=== PATIENT | male | born 1965 | race Caucasian/White ===

== ENCOUNTER 2016-10-07 07:23 | Observation (INO) | payer OTHER ==
[2016-10-02 09:13] VITALS: BMI 39.0
--- NOTE | 2016-10-02 09:55 | PAT Medication Instructions ---
Service Date October 02, 2016. Current Home Medication List Alprazolam (Xanax), 0.5 MG PO BID PRN for RN Aspirin (Aspirin Ec), 81 MG PO QAM Atorvastatin (Lipitor), 80 MG PO QAM Benzoyl Peroxide (Benzoyl Peroxide), 1 DOSE TOP PRN Bupropion (Wellbutrin), 100 MG PO TID Citalopram Hydrobromide (Citalopram Hydrobromide), 1 TAB PO QAM Furosemide (Lasix), 80 MG PO QPM Gabapentin (Neurontin), 800 MG PO TID Insulin Glargine (Lantus), 5 UNITS INJ QAM Insulin Human Lispro (Humalog), 20 UNITS INJ TIDM Losartan Potassium (Cozaar), 100 MG PO QAM Metformin Hcl (Glucophage), 1,000 MG PO BID Omeprazole (Prilosec), 20 MG PO QAM Pioglitazone (Actos), 1 TAB PO QAM Potassium Ext Rel (Klor-Con), 20 MEQ PO QAM Medication Instructions For Your Scheduled Surgery Aspirin (Aspirin Ec), 81 MG PO QAM (patient has been off of medication for four weeks) - Hold the following medications 48 hours or 2 days prior to surgery: Metformin Hcl (Glucophage), 1,000 MG PO BID - Hold the following medications 24 hours prior to surgery: Benzoyl Peroxide (Benzoyl Peroxide), 1 DOSE TOP PRN - Hold the following medications the morning of surgery: Pioglitazone (Actos), 1 TAB PO QAM Potassium Ext Rel (Klor-Con), 20 MEQ PO QAM Losartan Potassium (Cozaar), 100 MG PO QAM Insulin Human Lispro (Humalog), 20 UNITS INJ TIDM - Take the following medications the morning of surgery with a sip of water: Omeprazole (Prilosec), 20 MG PO QAM Gabapentin (Neurontin), 800 MG PO TID Citalopram Hydrobromide (Citalopram Hydrobromide), 1 TAB PO QAM Bupropion (Wellbutrin), 100 MG PO TID Atorvastatin (Lipitor), 80 MG PO QAM Alprazolam (Xanax), 0.5 MG PO BID PRN for RN - Take the following medications as scheduled the night before surgery: Gabapentin (Neurontin), 800 MG PO TID Furosemide (Lasix), 80 MG PO QPM Bupropion (Wellbutrin), 100 MG PO TID Alprazolam (Xanax), 0.5 MG PO BID PRN for RN - For Insulin Dependent Diabetic patients: Test blood sugar A.M. of surgery. - If blood sugar is greater 150, take half of your Lantus dose ( 26 units) - If blood sugar is less than 150, do not take any: Lantus If you have any questions please call us at [phone] or [phone] ( Amy) or [phone]
[2016-10-02 10:37] LABS: BASO % 0.5 %; BASO ABS # 0.03 K/uL (0-0.2); COMPLETE YES; EOS % 3.9 %; HEMATOCRIT 36.7 % (42-52); IG% 0.2 %; LYMPH % 43.3 %; LYMPH ABS # 2.68 K/uL (1.2-3.4); MEAN CELL VOLUME 93.6 fL (80-100); MEAN CORPUSCULAR HEMOGLOBIN 30.4 pg (25-34); MEAN CORPUSCULAR HGB CONC 32.4 g/dl (32-36); MEAN PLATELET VOLUME 9.2 fL (7.4-10.4); MONO % 6.9 %; NEUT % 45.2 %; PLATELET COUNT 265 K/uL (130-400); RED BLOOD COUNT 3.92 M/uL (4.7-6.1); WHITE BLOOD COUNT 6.19 K/uL (4.8-10.8)
[2016-10-02 10:59] LABS: BUN/CREATININE RATIO 11.1 (10-20); CALCIUM 8.9 mg/dl (8.5-10.1); CREATININE 1.5 mg/dl (0.60-1.40); POTASSIUM 3.5 mmol/L (3.5-5.1)
[2016-10-02 11:16] LABS: BETA-HYDROXYBUTYRATE 0.8 mg/dL (0.2-2.81)
[~2016-10-07] VITALS: Ht 185.4 cm; Wt 134.2 kg
[2016-10-07] VITALS (9 sets, daily range): BP systolic 129–163; BP diastolic 80–94; PULSE 69–92; TEMP 36.6–36.9; O2SAT 92–98; BMI 39.0
[~2016-10-07 07:23] MED LIST: ACT30 PO; ALPR-411 PO; ASPI81TA28 PO; ATOR-26 PO; BENZ1GEL9 TOP; BUPR-83 PO; CITA20TA4 PO; FURO80TA63 PO; GABA800T PO; INSDGI INJ; INSPMPHMLG INJ; LACTATED RINGER'S 1000ML 1,000 ML IV SCH; LOSA1TAB38 PO; METF-384 PO; POTA20TA16 PO; PRLSR20 PO
[2016-10-07] MEDS ORDERED: ROCURONIUM BROMIDE 10 MG/ML 5 ML VIAL ONE (08:05)
[2016-10-07] MEDS ORDERED: LIDOCAINE HCL 2% 2 ML VIAL (20MG/ML) ONE (08:05)
[2016-10-07] MEDS ORDERED: FENTANYL CITRATE INJ 50 MCG/1 ML 2 ML VIAL ONE (08:05)
[2016-10-07] MEDS ORDERED: PROPOFOL IV EMULSION 10 MG/ML 20 ML VIAL IV ONE (08:05)
[2016-10-07] MEDS ORDERED: MIDAZOLAM HCL 1 MG/ML 2ML VIAL ONE (08:05)
[2016-10-07] MEDS ORDERED: ONDANSETRON INJ 2 MG/ML 2 ML VIAL ONE (08:05)
[2016-10-07] MEDS ORDERED: ONDANSETRON INJ 2 MG/ML 2 ML VIAL IV PRN ×3 (08:45→12:00)
[2016-10-07] MEDS ORDERED: FENTANYL CITRATE INJ 50 MCG/1 ML 2 ML VIAL IV PRN ×2 (08:45→10:00)
[2016-10-07] MEDS ORDERED: EpHEDrine SULFATE INJ 50 MG/ML AMP IV PRN ×2 (08:45→10:00)
[2016-10-07] MEDS ORDERED: ATROPINE SULFATE 0.1 MG/ML 5ML SYR IV PRN ×2 (08:45→10:00)
[2016-10-07] MEDS ORDERED: PROMETHAZINE HCL INJ 6.25 MG in SODIUM CHLORIDE 0.9% 50ML 50 ML IV PRN ×2 (08:45→10:00)
[2016-10-07] MEDS ORDERED: LANTUS PER UNIT CHARGE SC ONE (09:00)
--- NOTE | 2016-10-07 09:35 | History and Physical ---
History & Physical Date October 07, 2016. History of Present Illness The patient is a 51 year old male with complaints of right sided cervical lipoma. Patient desires removal. Additional History Hepatic Disease: No Endocrine Disorder: Yes (diabetes) Kidney Disease: No Hypertension: No Heart Disease: No Bleeding Tendencies: No Infectious Diseases: No Allergies Coded Allergies: Trazodone (Unverified Allergy, Unknown, UNKNOWN, 10/07/16) Home Medications Scheduled Aspirin (Aspirin Ec), 81 MG PO QAM Atorvastatin (Lipitor), 80 MG PO QAM Benzoyl Peroxide (Benzoyl Peroxide), 1 DOSE TOP PRN Bupropion (Wellbutrin), 100 MG PO TID Citalopram Hydrobromide (Citalopram Hydrobromide), 1 TAB PO QAM Furosemide (Lasix), 80 MG PO QPM Gabapentin (Neurontin), 800 MG PO TID Insulin Glargine (Lantus), 55 UNITS INJ QAM Insulin Human Lispro (Humalog), 20 UNITS INJ TIDM Losartan Potassium (Cozaar), 100 MG PO QAM Metformin Hcl (Glucophage), 1,000 MG PO BID Omeprazole (Prilosec), 20 MG PO QAM Pioglitazone (Actos), 1 TAB PO QAM Potassium Ext Rel (Klor-Con), 20 MEQ PO QAM Scheduled PRN Alprazolam (Xanax), 0.5 MG PO BID PRN for RN Physical Examination Skin: warm/dry, no rash Eyes: normal inspection, EOMI, sclerae normal ENT: normal ENT inspection, pharynx normal Head: normocephalic, atraumatic Neck: + pertinent finding (right neck lipoma) Respiratory/Chest: lungs clear, normal breath sounds, no respiratory distress Cardiovascular: regular rate, rhythm, no edema, no murmur Diagnosis Right cervical lipoma Plan of Treatment proceed with excision of lipoma, possible submandibular gland excision ancef scds
[2016-10-07] MEDS ORDERED: CEFAZOLIN IV 3,000 MG/65 ML D5W IV ONE (09:49)
[2016-10-07] MEDS ORDERED: LIDOCAINE/EPINEPHRINE 1% 20 ML VIAL ONE (09:50)
[2016-10-07] MEDS ORDERED: EpINEphrine INJ 1MG/ML AMP 1 MG/ML AMP ONE (09:51)
[2016-10-07] MEDS ORDERED: BACITRACIN OINT 15 GM TUBE ONE (09:52)
[2016-10-07] MEDS ORDERED: GLYCOPYRROLATE INJ 0.2 MG/ML VIAL ONE (10:52)
[2016-10-07] MEDS ORDERED: SUCCINYLCHOLINE CHLORIDE 20 MG/ML 10 ML VIAL IV ONE (10:52)
[2016-10-07] MEDS ORDERED: NEOSTIGMINE METHYLSULFATE 5 MG/5 ML SYR ONE (10:52)
[2016-10-07] MEDS: SODIUM CHLORIDE 0.9% 1000ML 1,000 ML IV SCH ×2 (11:45→14:42)
--- NOTE | 2016-10-07 11:54 | [facility] Post Operative Brief Note ---
Immediate Operative Summary Operative Date October 07, 2016. Pre-Operative Diagnosis Right cervical lipoma Post-Operative Diagnosis Right cervical lipoma Procedure(s) Performed Excision of Right Cervical Lipoma Surgeon Dr. Edwardo Coleman Drapery Examiner Surgeon(s) Elenita Ji PA-C Estimated Blood Loss 10ml Findings Large right cervical lipoma Specimens A. Right Cervical Lipoma Drains 10 flat TRISH drain to bulb suction Anesthesia GETA Complication(s) None Disposition Recovery Room / PACU
[2016-10-07] MEDS ORDERED: OXYCODONE/ACETAMINOPHEN 5-325 TAB PO PRN ×2 (12:00)
[2016-10-07] MEDS ORDERED: ALPRAZOLAM 0.5 MG TAB PO PRN (12:00)
[2016-10-07] MEDS ORDERED: MoRPHine SULFATE 2 MG/ML CARP IV PRN (12:00)
[2016-10-07] MEDS ORDERED: PHARMACY GLYCEMIC MGMT CONSULT PRN (12:02)
[2016-10-07] MEDS ORDERED: CEPH500C2 PO (12:05)
[2016-10-07] MEDS ORDERED: OXYC-57 PO (12:05)
--- NOTE | 2016-10-07 12:10 | Discharge Instructions ---
Discharge Instructions Date of Service October 07, 2016. Admission Reason for Admission: Neck Mass, Lipoma Of Neck Discharge Discharge Diagnosis / Problem: lipoma of the neck Discharge Goals Goal(s): Improve function, Diagnostic testing Activity Recommendations Activity Limitations: as noted below Lifting Limitations: until after follow-up appointment Exercise/Sports Limitations: until after follow-up appointment May Resume Sexual Activity: after follow-up appointment Shower/Bathe: keep incision dry No strenuous activity for 2 weeks No heavy lifting for 2 weeks Keep incision dry (if you want to shower, you can place a washcloth over the incision and wrap the neck in saran wrap). Instructions / Follow-Up Instructions / Follow-Up No strenuous activity for 2 weeks Keep incision dry. If you want to shower, place a wash cloth over the incision and wrap the neck in saran wrap Call for any spreading redness or swelling of the incision Apply bacitracin ointment ( tube you got at the hospital) to the incision line three times daily Take antibiotic (Keflex) as directed No NSAIDs for 2 weeks Ok to restart your baby aspirin in one week Take pain medication supplied or regular tylenol. Do not take both at the same time as the pain medication you were provided at the hospital has tylenol in it. Current Hospital Diet Patient's current hospital diet: Discharge Diet Recommended Diet: Regular Diet Procedures Procedures Performed: Excision of Right Cervical Lipoma Pending Studies Studies pending at discharge: no Medical Emergencies . Who to Call and When: Medical Emergencies: If at any time you feel your situation is an emergency, please call 911 immediately. . Non-Emergent Contact Non-Emergency issues call your: Specialist Contact Number: [phone] Call Non-Emergent contact if: temperature is above 101.5 . . "Provider Documentation" section prepared by Edwardo Coleman. . VTE Core Measure Inpt VTE Proph given/why not?: Treatment not indicated [place] Drug Monitoring Program Search Results: patient reviewed within database, no issues identified
[2016-10-07] MEDS ORDERED: IV FLUIDS COMPLETED PRN (12:45)
--- NOTE | 2016-10-07 12:53 | Anesthesiology Progress Note ---
Anesthesia Post Op Note Date & Time October 07, 2016 at 12:53 Vital Signs Pain Intensity: 0 Vital Signs Past 12 Hours Date Time Temp Pulse Resp B/P Pulse Ox O2 Delivery O2 Flow Rate FiO2 10/07/16 12:45 87 16 158/95 95 Nasal Cannula 4 10/07/16 12:35 89 16 160/96 95 Nasal Cannula 4 10/07/16 12:25 89 16 163/94 93 Nasal Cannula 4 10/07/16 12:15 36.2 92 16 167/103 95 Nasal Cannula 3 10/07/16 12:05 92 15 168/100 99 Mask 10 10/07/16 11:55 97 22 165/96 98 Mask 10 10/07/16 11:46 36.0 96 13 153/93 96 Mask 10 10/07/16 07:50 36.9 69 18 149/91 97 Room Air Notes Mental Status: alert / awake / arousable, participated in evaluation Pt Amnestic to Procedure: Yes Nausea / Vomiting: adequately controlled Pain: adequately controlled Airway Patency, RR, SpO2: stable & adequate BP & HR: stable & adequate Hydration State: stable & adequate Anesthetic Complications: no major complications apparent
--- NOTE | 2016-10-07 14:36 | Pharmacy Progress Note ---
Glycemic Control Intl Consult Date of Service October 07, 2016. Scope Glycemic Pharmacist consulted by Dr Coleman (Dr Muhammad aware) on 10/07/16 for glycemic control and to write orders per [facility] inpatient glycemic control protocol Objective Weight (Kilograms): 134.200 Accuchecks BSG (last 24hrs): Test 10/07/16 07:48 10/07/16 12:06 Bedside Glucose 206 mg/dl (70-99) 199 mg/dl (70-99) Laboratory Data (last 24hrs) Test 10/07/16 14:17 HbA1c Test 10/07/16 14:17 Recent Pertinent Medications Outpatient Anti-diabetic Regimen: * Lantus 55 units qAM plus Humalog 20 units with meals; metformin 1000 mg PO BID ; Actos 30 units qAM * A1c = 10.6 % 08/09/16 Risk Factors for Insulin Resistance: * Recent Surgery: removal of lipoma * Diet: type 2 diabetic diet Assessment & Plan ASSESSMENT: * ADA & AACE recommend a goal blood sugar range 140-180 mg/dl for the majority of critically ill & non-critically ill patients. However, more stringent targets may be selected in individual cases. Will utilize more stringent goal of 110-140mg/dl based on patient age & comorbidities. Additionally, tighter glycemic control is warranted to facilitate wound/infection healing. * Mr Gordillo is a 51 y/o male admitted 10/07/16 as observation after the excision of a neck lipoma. He is a poorly controlled diabetic with an A1C of 10.6% in July. He received Lantus 50 units SQ x 1 this morning prior to surgery. His blood sugar this morning was 206 mg/dL then 199 mg/dL after surgery. * Will continue Lantus 50 units in the morning. A strict correctional insulin will be started based upon patient's outpatient dose of 115 units/day with a stress of 2. Overnight accuchecks were added to ensure adequate post-op glycemic management. PLAN FOR INPATIENT GLYCEMIC CONTROL: * Holding outpatient oral diabetes medications * Basal insulin with LANTUS 50 units SQ qAM * Correctional Insulin with NOVOLOG per scale ACHS o * Goal Range: Low 110 mg/dL - High 140 mg/dL * Correction Factor: 10 mg/dL/unit * Nutritional / Prandial insulin per carb ratio of 1 unit per 4 grams CHO consumed * Please note that the plan above was derived based on current level of insulin resistance and hospital stress. These recommendations are appropriate for inpatient admission only. Plan of care upon discharge will need to be reassessed to avoid potential outpatient hypo/hyperglycemia. Thank you.
[2016-10-07] MEDS: GABAPENTIN 800 MG TAB PO SCH ×2 (14:40→21:44)
[2016-10-07 14:54] LABS: ESTIMATED AVERAGE GLUCOSE 240 mg/dl; HA1C FLAG Normal (Normal)
--- NOTE | 2016-10-07 15:13 | Medical Consult ---
Consultation Date of Consultation: October 07, 2016 ~ 15:00 . Attending Physician: Edwardo Coleman D.O. Reason for Consultation: medical management . History of Present Illness 51 YO male followed by Dr. Bradley for Family Medicine. History of hypertension, DM type 2, sleep apnea, and other problems. Excision of lipoma from neck performed today under [facility]. Doing well postoperatively except for postoperative neck pain. No chest pain. No cough or dyspnea. No nausea or vomiting. . Past Medical/Surgical History Chronic Medical Problems: (1) Koenig's esophagus Status: Chronic (2) Diabetes mellitus type 2, controlled Status: Chronic (3) GERD (gastroesophageal reflux disease) Status: Chronic (4) Hypertension Status: Chronic (5) Sleep apnea Status: Chronic Surgical Problems: (1) Status post cardiac catheterization Status: Chronic (2) Status post cholecystectomy Status: Chronic . Family History FATHER Diabetes mellitus Myocardial infarction MOTHER Diabetes mellitus Cancer BROTHER Esophageal cancer Social History Smoking Status: Never Smoker Alcohol Use: socially Allergies Coded Allergies: Trazodone (Unverified Allergy, Unknown, UNKNOWN, 10/07/16) Home Medications Reported Home Medications Medications Dose Route/Sig Max Daily Dose Days Date Category Keflex (Cephalexin Monohydrate) 500 Mg Cap 500 Mg PO TID 7 10/07/16 Rx Percocet 5MG/325MG (Oxycodone/Acetaminophen) Tab 1-2 Tablets PO Q4-6H PRN 10/07/16 Rx Aspirin Ec (Aspirin) 81 Mg Tab 81 Mg PO QAM 10/02/16 Reported Xanax (Alprazolam) 0.5 Mg Tab 0.5 Mg PO BID PRN 10/02/16 Reported Benzoyl Peroxide 10 % Gel 1 Dose TOP PRN 10/02/16 Reported Citalopram Hydrobromide 20 Mg Tab 1 Tab PO QAM 90 10/02/16 Reported Wellbutrin (Bupropion HCl) 100 Mg Tab 100 Mg PO TID 10/02/16 Reported Lasix (Furosemide) 80 Mg Tab 80 Mg PO QPM 10/02/16 Reported Glucophage (Metformin Hcl) 1,000 Mg Tab 1,000 Mg PO BID 10/02/16 Reported Cozaar (Losartan Potassium) 100 Mg Tab 100 Mg PO QAM 10/02/16 Reported Humalog (Insulin Human Lispro) 1 Ea Inj 20 Units INJ TIDM 10/02/16 Reported Lantus (Insulin Glargine) 100 Unit/Ml Inj 55 Units INJ QAM 10/02/16 Reported Klor-Con (Potassium Chloride) 20 Meq Tabcr 20 Meq PO QAM 10/02/16 Reported Neurontin (Gabapentin) 800 Mg Tab 800 Mg PO TID 10/02/16 Reported Prilosec (Omeprazole) 20 Mg Capcr 20 Mg PO QAM 10/02/16 Reported Lipitor (Atorvastatin Calcium) 80 Mg Tab 80 Mg PO QAM 10/02/16 Reported Actos (Pioglitazone) 30 Mg Tab 1 Tab PO QAM 90 10/02/16 Reported Current Inpatient Medications Current Inpatient Medications Medications (Trade) Dose Ordered Sig/David Route Start Time Stop Time Status Last Admin Dose Admin Lactated Ringer's 1,000 ml @ 15 mls/hr Q24H IV 10/07/16 06:00 10/08/16 05:59 10/07/16 08:05 15 MLS/HR Sodium Chloride (Nss 1000ml) 1,000 ml @ 15 mls/hr Q24H IV 10/07/16 11:45 11/06/16 11:44 10/07/16 14:42 15 MLS/HR Alprazolam (Xanax Tab) 0.5 mg BID PRN PO 10/07/16 12:00 11/06/16 11:59 Atorvastatin Calcium (Lipitor Tab) 80 mg QAM PO 10/08/16 09:00 11/07/16 08:59 Bupropion HCl (Wellbutrin Tab) 100 mg TID PO 10/07/16 14:00 11/06/16 13:59 10/07/16 14:41 100 MG Citalopram Hydrobromide (celeXA TAB) 20 mg QAM PO 10/08/16 09:00 11/07/16 08:59 Furosemide (Lasix Tab) 80 mg DAILY@1700 PO 10/07/16 17:00 11/06/16 16:59 Gabapentin (Neurontin Tab) 800 mg TID PO 10/07/16 14:00 11/06/16 13:59 10/07/16 14:40 800 MG Losartan Potassium (coZAAR TAB) 100 mg QAM PO 10/08/16 09:00 11/07/16 08:59 Potassium Chloride (Klor-Con Tab) 20 meq QAM PO 10/08/16 09:00 11/07/16 08:59 Pantoprazole Sodium (Protonix Tab) 40 mg QAM PO 10/08/16 09:00 11/07/16 08:59 Miscellaneous Information (Consult Glycemic Management Pharmacy) 1 ea UD PRN N/A 10/07/16 12:02 11/06/16 12:01 Morphine Sulfate (MoRPHine SULFATE INJ) 2 mg Q2H PRN IV 10/07/16 12:00 10/21/16 11:59 Ondansetron HCl (Zofran Inj) 4 mg Q6H PRN IV 10/07/16 12:00 10/08/16 11:59 Oxycodone/ Acetaminophen (Percocet 5-325mg Tab) 1 tab Q4H PRN PO 10/07/16 12:00 10/21/16 11:59 Oxycodone/ Acetaminophen 2 tab 2 tab Q4H PRN PO 10/07/16 12:00 10/21/16 11:59 Cefazolin Sodium/ Dextrose (Ancef Iv/D5 50ml) 65 ml @ 100 mls/hr Q8H IV 10/07/16 18:00 10/08/16 17:59 Miscellaneous (Iv Fluids Completed) 1 ea PRN PRN N/A 10/07/16 12:45 10/07/17 12:44 Insulin Glargine (Lantus Solostar Pen) 50 unit QAM SC 10/08/16 09:00 11/07/16 08:59 Insulin Aspart (novoLOG ASPART) SLIDING SCALE ACHS [place] 10/07/16 17:15 11/06/16 17:14 Insulin Aspart (novoLOG ASPART) SLIDING SCALE TODAY@0000,0400 [place] 10/08/16 00:00 10/08/16 04:01 Review of Systems Constitutional: + weight loss, No fever Respiratory: No cough, No shortness of breath Cardiovascular: No chest pain, No edema Abdomen: No GI bleeding, No diarrhea, No nausea, No vomiting Genitourinary - Male: No dysuria, No hematuria Endocrine: No excessive thirst, No excessive urination Physical Exam Date Time Temp Pulse Resp B/P Pulse Ox O2 Delivery O2 Flow Rate FiO2 10/07/16 15:00 36.9 84 18 151/94 94 Nasal Cannula 3.0 10/07/16 14:45 82 18 163/90 92 10/07/16 14:16 96 Nasal Cannula 3.0 10/07/16 13:30 36.7 90 16 155/93 98 Nasal Cannula 4.0 10/07/16 13:00 98 Nasal Cannula 3.0 10/07/16 13:00 36.6 86 16 141/90 93 Nasal Cannula 3.0 10/07/16 12:45 87 16 158/95 95 Nasal Cannula 4 10/07/16 12:35 89 16 160/96 95 Nasal Cannula 4 10/07/16 12:25 89 16 163/94 93 Nasal Cannula 4 10/07/16 12:15 36.2 92 16 167/103 95 Nasal Cannula 3 10/07/16 12:05 92 15 168/100 99 Mask 10 10/07/16 11:55 97 22 165/96 98 Mask 10 10/07/16 11:46 36.0 96 13 153/93 96 Mask 10 10/07/16 07:50 36.9 69 18 149/91 97 Room Air General Appearance: WD/WN, no apparent distress Head: normocephalic, atraumatic Eyes: normal inspection, PERRL, EOMI, sclerae normal ENT: normal ENT inspection, hearing grossly normal, pharynx normal Neck: supple, trachea midline, + pertinent finding (surgical drain; exam limited due to body habitus, no JVD appreciated) Respiratory/Chest: lungs clear, no respiratory distress, no accessory muscle use Cardiovascular: regular rate, rhythm, no edema, no gallop, no JVD, no murmur, normal peripheral pulses Abdomen/GI: normal bowel sounds, non tender, soft, no organomegaly Extremities/Musculoskelatal: normal inspection, no calf tenderness, normal capillary refill, no pedal edema, + pertinent finding (SCD's applied) Neurologic/Psych: ux visual designer II-XII nml as tested (PERRL, EOMI, no facial palsy, no dysarthria), no motor/sensory deficits (grossly intact), alert, oriented x 3 Skin: normal color, warm/dry, no rash Laboratory Results Item Value Date Time Hemoglobin 11.9 g/dL L 10/02/16 1001 White Blood Count 6.19 K/uL 10/02/16 1001 Platelet Count 265 K/uL 10/02/16 1001 Sodium Level 141 mmol/L 10/02/16 1001 Potassium Level 3.5 mmol/L 10/02/16 1001 Chloride Level 105 mmol/L 10/02/16 1001 Carbon Dioxide Level 29 mmol/L 10/02/16 1001 Anion Gap 7.0 mmol/L 10/02/16 1001 Blood Urea Nitrogen 17 mg/dl 10/02/16 1001 Creatinine 1.50 mg/dl H 10/02/16 1001 Random Glucose 324 mg/dl H 10/02/16 1001 EKG performed 10/02/16 at 10:09 reviewed and demonstrated NSR at 90 / minute, RBBB. . Last 24 Hours Test 10/07/16 07:48 10/07/16 12:06 10/07/16 14:17 Bedside Glucose 206 mg/dl 199 mg/dl Estimated Average Glucose 240 mg/dl Hemoglobin A1c 10.0 % Assessment & Plan S/P EXCISION LIPOMA NECK Doing well postoperatively. HYPERTENSION BP's slightly elevated postoperatively. Continue losartan. Follow and titrate Rx. DM TYPE 2 Patient does not monitor blood sugars regularly at home. Preop random glucose 324. Pharmacy consulted to assist with glycemic management. Hgb A1C ordered. GERD / KOENIG'S ESOPHAGUS Continue PPI. VTE PROPHYLAXIS SCD's ordered postoperatively. Ambulate. Thank you for this consultation. We will follow the patient with you during their hospital stay. Dr. Stark will be rounding starting Sunday 10/08. You can reach a member of the [facility]ist Team 09/12 via pager @ . You can reach me via cell @ [phone]. . Additional Copies To Quincy Bradley M.D.
[2016-10-07] MEDS ORDERED: FUROSEMIDE 80 MG TAB PO SCH (17:00)
[2016-10-07] MEDS: INSULIN ASPART 100 UNITS/ML 3 ML PEN SC SCH ×2 (17:15→21:50)
--- NOTE | 2016-10-07 17:50 | OPERATIVE REPORT ---
DATE OF OPERATION: 10/07/2016 PREOPERATIVE DIAGNOSIS: Right cervical lipoma. POSTOPERATIVE DIAGNOSIS: Same. PROCEDURE: Excision of right cervical lipoma deep. SURGEON: Dr. Edwarod Coleman. ASSISTANTS: Nel Ji PA-C COMPLICATIONS: None. DRAINS: A 10 flat TRISH drain through a separate stab incision in the right neck. SPECIMENS: Right deep cervical lipoma sent to surgical pathology. ESTIMATED BLOOD LOSS: 10 mL. IV FLUIDS: 1 liter. URINE OUTPUT: 0 mL. FINDINGS: See body of operative report. DESCRIPTION OF THE OPERATION: The patient was brought to the operating room, identified, procedure verified. He underwent general endotracheal anesthesia and prepped and draped in the usual fashion for neck surgery. An incision was delineated with a marking pen 2-1/2 fingerbreadths below the angle of mandible overlying the cervical lipoma. It was injected with 1% lidocaine 1:100,000 epinephrine and allowed time for local to take effect. Once this was done, the incision was carried down with a 15 blade through skin and subcutaneous tissue down to the level of the platysma. Superior and inferior subplatysmal flaps were raised and the lipoma came into plain view. At this point, a circumferential dissection was performed bluntly as well as with the harmonic robinson to skeletonize the mass. It was well circumscribed and had the typical appearance of lipoma. The anterior border was dissected out first again with blunt dissection with hemostats as well as harmonic robinson. Once the anterior border had been completely skeletonized, attention was directed inferiorly to the inferior border, this again was skeletonized with blunt dissection with hemostats as well as the harmonic robinson. Once this was completed, the posterior aspect was dissected free away from a large fascial vein. This was retracted laterally and dissection proceeded from inferior to superior along the posterior border. Once these 3 borders were freed, the deep border was dissected bluntly. This was again done with care with hemostats, the lipoma off of the strap muscles. Once the border was dissected free, the last remaining fascial attachments superiorly were taken down with blunt dissection with hemostats and harmonic robinson. The inferior aspect of the right submandibular gland was identified but the lipoma was not attached to it, it was easily dissected off. The lipoma was removed and sent to surgical pathology. At this point, the wound was irrigated liberally. Valsalva with irrigation and the wound revealed no evidence of any bubbling. Hemostasis was assured and again Valsalva maneuvers were performed and no obvious bleeding was identified. At this point, a 10 flat TRISH drain was placed through a separate stab incision and secured with a 3-0 nylon suture. Once the drain was placed, the wound was closed in the usual fashion with 3-0 Vicryl for the platysmal layer, 4-0 Vicryl for the subdermal layer and a running 4-0 nylon for the skin. Bacitracin was applied and the drain sponge was also applied. The patient was returned to anesthesia. At this point, he was awakened, extubated and taken to PACU in stable condition. I attest to the content of the Intraoperative Record and any orders documented therein. Any exceptions are noted below. DENIA
[2016-10-07] MEDS: CEFAZOLIN IV 3,000 MG in DEXTROSE 5% 50ML 50 ML IV SCH (19:48)
[2016-10-07] MEDS ORDERED: METFORMIN HCL 500 MG TAB PO SCH (21:00)
[2016-10-08] MEDS: INSULIN ASPART 100 UNITS/ML 3 ML PEN SC SCH ×6 (00:48→20:59)
[2016-10-08] MEDS: CEFAZOLIN IV 3,000 MG in DEXTROSE 5% 50ML 50 ML IV SCH ×2 (03:02→10:22)
[2016-10-08 03:40] VITALS: BP 136/87; PULSE 75; TEMP 36.7; O2SAT 92
[2016-10-08] MEDS ORDERED: CEFAZOLIN IV 3,000 MG/65 ML D5W IV ONE (06:00)
--- NOTE | 2016-10-08 06:14 | Progress Note ---
Internal Med Progress Note Date of Service: October 08, 2016. Provider Documentation: Made aware by RN of poor urine output, poor PO intake. some urinary retention as per RN. IVF check PRP hold home diuretic until PRP back. Will relay to AM provider. Vital Signs: Date Time Temp Pulse Resp B/P Pulse Ox O2 Delivery O2 Flow Rate FiO2 10/08/16 07:08 36.9 77 16 132/83 91 Room Air 10/08/16 03:40 36.7 75 18 136/87 92 Room Air 10/08/16 00:30 Room Air 10/07/16 22:55 36.7 85 20 129/83 93 Room Air 10/07/16 19:15 36.7 86 18 132/82 97 Nasal Cannula 2.0 10/07/16 16:10 3.0 10/07/16 15:55 36.9 92 18 137/80 94 Nasal Cannula 3.0 10/07/16 15:00 36.9 84 18 151/94 94 Nasal Cannula 3.0 10/07/16 14:45 82 18 163/90 92 10/07/16 14:16 96 Nasal Cannula 3.0 10/07/16 13:30 36.7 90 16 155/93 98 Nasal Cannula 4.0 10/07/16 13:00 98 Nasal Cannula 3.0 10/07/16 13:00 36.6 86 16 141/90 93 Nasal Cannula 3.0 10/07/16 12:45 87 16 158/95 95 Nasal Cannula 4 10/07/16 12:35 89 16 160/96 95 Nasal Cannula 4 10/07/16 12:25 89 16 163/94 93 Nasal Cannula 4 10/07/16 12:15 36.2 92 16 167/103 95 Nasal Cannula 3 10/07/16 12:05 92 15 168/100 99 Mask 10 10/07/16 11:55 97 22 165/96 98 Mask 10 10/07/16 11:46 36.0 96 13 153/93 96 Mask 10 10/07/16 07:50 36.9 69 18 149/91 97 Room Air Lab Results: Results Past 24 Hours Test 10/07/16 07:48 10/07/16 12:06 10/07/16 14:17 10/07/16 19:30 Range/Units Bedside Glucose 206 199 122 70-99 mg/dl Estimated Average Glucose 240 mg/dl Hemoglobin A1c 10.0 4.5-5.6 % Test 10/07/16 21:03 10/08/16 00:36 10/08/16 03:38 10/08/16 06:21 Range/Units Bedside Glucose 196 146 108 70-99 mg/dl White Blood Count 6.32 4.8-10.8 K/uL Red Blood Count 3.73 4.7-6.1 M/uL Hemoglobin 11.6 14.0-18.0 g/dL Hematocrit 34.5 42-52 % Mean Corpuscular Volume 92.5 80-100 fL Mean Corpuscular Hemoglobin 31.1 25-34 pg Mean Corpuscular Hemoglobin Concent 33.6 32-36 g/dl Platelet Count 237 130-400 K/uL Mean Platelet Volume 8.5 7.4-10.4 fL Neutrophils (%) (Auto) 53.8 % Lymphocytes (%) (Auto) 33.7 % Monocytes (%) (Auto) 9.2 % Eosinophils (%) (Auto) 2.8 % Basophils (%) (Auto) 0.5 % Neutrophils # (Auto) 3.40 1.4-6.5 K/uL Lymphocytes # (Auto) 2.13 1.2-3.4 K/uL Monocytes # (Auto) 0.58 0.11-0.59 K/uL Eosinophils # (Auto) 0.18 0-0.5 K/uL Basophils # (Auto) 0.03 0-0.2 K/uL RDW Standard Deviation 46.8 36.4-46.3 fL RDW Coefficient of Variation 13.8 11.5-14.5 % Immature Granulocyte % (Auto) 0.0 % Immature Granulocyte # (Auto) 0.00 0.00-0.02 K/uL Sodium Level 141 136-145 mmol/L Potassium Level 2.8 3.5-5.1 mmol/L Chloride Level 105 98-107 mmol/L Carbon Dioxide Level 30 21-32 mmol/L Anion Gap 6.0 3-11 mmol/L Blood Urea Nitrogen 12 7-18 mg/dl Creatinine 1.30 0.60-1.40 mg/dl Est Creatinine Clear Calc Drug Dose 96.6 ml/min Estimated GFR () 73.2 Estimated GFR (Non- 63.2 BUN/Creatinine Ratio 9.2 10-20 Random Glucose 106 70-99 mg/dl Calcium Level 8.4 8.5-10.1 mg/dl Test 10/08/16 06:36 Range/Units
[2016-10-08] MEDS ORDERED: LACTATED RINGER'S 1000ML 1,000 ML IV ONE (06:15)
[2016-10-08 06:29] LABS: BASO % 0.5 %; BASO ABS # 0.03 K/uL (0-0.2); COMPLETE YES; EOS % 2.8 %; HEMATOCRIT 34.5 % (42-52); LYMPH % 33.7 %; LYMPH ABS # 2.13 K/uL (1.2-3.4); MEAN CELL VOLUME 92.5 fL (80-100); MEAN CORPUSCULAR HEMOGLOBIN 31.1 pg (25-34); MEAN CORPUSCULAR HGB CONC 33.6 g/dl (32-36); MEAN PLATELET VOLUME 8.5 fL (7.4-10.4); MONO % 9.2 %; NEUT % 53.8 %; PLATELET COUNT 237 K/uL (130-400); RED BLOOD COUNT 3.73 M/uL (4.7-6.1); WHITE BLOOD COUNT 6.32 K/uL (4.8-10.8)
[2016-10-08 07:03] LABS: BUN/CREATININE RATIO 9.2 (10-20); CALCIUM 8.4 mg/dl (8.5-10.1); CREATININE 1.3 mg/dl (0.60-1.40); POTASSIUM 2.8 mmol/L (3.5-5.1)
[2016-10-08 07:08] VITALS: BP 132/83; PULSE 77; TEMP 36.9; O2SAT 91
--- NOTE | 2016-10-08 07:18 | Ears,Nose,Throat Progress Note ---
Progress Note Date of Service October 08, 2016. Subjective Pt evaluation today including: conversation w/ patient, physical exam, chart review Patient did well overnight. No issues. Pain controlled. Drain output 55mL since OR. Objective Vital Signs Date Time Temp Pulse Resp B/P Pulse Ox O2 Delivery O2 Flow Rate FiO2 10/08/16 07:08 36.9 77 16 132/83 91 Room Air 10/08/16 03:40 36.7 75 18 136/87 92 Room Air 10/08/16 00:30 Room Air 10/07/16 22:55 36.7 85 20 129/83 93 Room Air 10/07/16 19:15 36.7 86 18 132/82 97 Nasal Cannula 2.0 10/07/16 16:10 3.0 10/07/16 15:55 36.9 92 18 137/80 94 Nasal Cannula 3.0 10/07/16 15:00 36.9 84 18 151/94 94 Nasal Cannula 3.0 10/07/16 14:45 82 18 163/90 92 10/07/16 14:16 96 Nasal Cannula 3.0 10/07/16 13:30 36.7 90 16 155/93 98 Nasal Cannula 4.0 10/07/16 13:00 98 Nasal Cannula 3.0 10/07/16 13:00 36.6 86 16 141/90 93 Nasal Cannula 3.0 10/07/16 12:45 87 16 158/95 95 Nasal Cannula 4 10/07/16 12:35 89 16 160/96 95 Nasal Cannula 4 10/07/16 12:25 89 16 163/94 93 Nasal Cannula 4 10/07/16 12:15 36.2 92 16 167/103 95 Nasal Cannula 3 10/07/16 12:05 92 15 168/100 99 Mask 10 10/07/16 11:55 97 22 165/96 98 Mask 10 10/07/16 11:46 36.0 96 13 153/93 96 Mask 10 10/07/16 07:50 36.9 69 18 149/91 97 Room Air Physical Exam General Appearance: WD/WN, no apparent distress ENT: normal ENT inspection Neck: + pertinent finding (incision intact, flaps are flat. Drain with serosanguinous output. Drain stripped. ) Respiratory/Chest: no respiratory distress, no accessory muscle use Cardiovascular: no JVD Laboratory Results Last 24 Hours Test 10/07/16 07:48 10/07/16 12:06 10/07/16 14:17 10/07/16 19:30 Bedside Glucose 206 mg/dl 199 mg/dl 122 mg/dl Estimated Average Glucose 240 mg/dl Hemoglobin A1c 10.0 % Test 10/07/16 21:03 10/08/16 00:36 10/08/16 03:38 10/08/16 06:21 Bedside Glucose 196 mg/dl 146 mg/dl 108 mg/dl White Blood Count 6.32 K/uL Red Blood Count 3.73 M/uL Hemoglobin 11.6 g/dL Hematocrit 34.5 % Mean Corpuscular Volume 92.5 fL Mean Corpuscular Hemoglobin 31.1 pg Mean Corpuscular Hemoglobin Concent 33.6 g/dl Platelet Count 237 K/uL Mean Platelet Volume 8.5 fL Neutrophils (%) (Auto) 53.8 % Lymphocytes (%) (Auto) 33.7 % Monocytes (%) (Auto) 9.2 % Eosinophils (%) (Auto) 2.8 % Basophils (%) (Auto) 0.5 % Neutrophils # (Auto) 3.40 K/uL Lymphocytes # (Auto) 2.13 K/uL Monocytes # (Auto) 0.58 K/uL Eosinophils # (Auto) 0.18 K/uL Basophils # (Auto) 0.03 K/uL RDW Standard Deviation 46.8 fL RDW Coefficient of Variation 13.8 % Immature Granulocyte % (Auto) 0.0 % Immature Granulocyte # (Auto) 0.00 K/uL Sodium Level 141 mmol/L Potassium Level 2.8 mmol/L Chloride Level 105 mmol/L Carbon Dioxide Level 30 mmol/L Anion Gap 6.0 mmol/L Blood Urea Nitrogen 12 mg/dl Creatinine 1.30 mg/dl Est Creatinine Clear Calc Drug Dose 96.6 ml/min Estimated GFR () 73.2 Estimated GFR (Non- 63.2 BUN/Creatinine Ratio 9.2 Random Glucose 106 mg/dl Calcium Level 8.4 mg/dl Test 10/08/16 06:36 Assessment and Plan 51 yo male s/p excision of right cervical lipoma, POD 1. - did well overnight - drain output slightly too high to remove drain. Offered patient to go home with drain, bu he would rather stay another night in the hospital and have me remove the drain tomorrow. - continue to trend drain - continue ambulation
[2016-10-08] MEDS: LOSARTAN POTASSIUM 50 MG TAB PO SCH (07:53)
[2016-10-08] MEDS: GABAPENTIN 800 MG TAB PO SCH ×3 (07:53→20:56)
[2016-10-08] MEDS: CITALOPRAM 20 MG TAB PO SCH (07:53)
[2016-10-08] MEDS: ATORVASTATIN 40 MG TAB PO SCH (07:53)
[2016-10-08] MEDS: PANTOprazole SOD 40 MG TAB PO SCH (07:53)
[2016-10-08] MEDS: POTASSIUM CHLORIDE 20 MEQ TABCR PO SCH (07:54)
[2016-10-08] MEDS: INSULIN GLARGINE SOLOSTAR 100 UNITS/ML 3 ML PEN SC SCH (08:03)
--- NOTE | 2016-10-08 08:13 | Anesthesiology Progress Note ---
Anesthesia Post Op Note Date & Time October 08, 2016 at 08:14 Vital Signs Vital Signs Past 12 Hours Date Time Temp Pulse Resp B/P Pulse Ox O2 Delivery O2 Flow Rate FiO2 10/08/16 07:08 36.9 77 16 132/83 91 Room Air 10/08/16 03:40 36.7 75 18 136/87 92 Room Air 10/08/16 00:30 Room Air 10/07/16 22:55 36.7 85 20 129/83 93 Room Air Notes Mental Status: alert / awake / arousable, participated in evaluation Pt Amnestic to Procedure: Yes Nausea / Vomiting: adequately controlled Pain: adequately controlled Airway Patency, RR, SpO2: stable & adequate BP & HR: stable & adequate Hydration State: stable & adequate Anesthetic Complications: no major complications apparent
[2016-10-08] MEDS ORDERED: NON-FORMULARY MEDICATION (Pioglitazone (Actos) 1 TAB) PO SCH (09:00)
[2016-10-08] MEDS ORDERED: INSULIN GLARGINE SOLOSTAR 100 UNITS/ML 3 ML PEN SC SCH (09:00)
[2016-10-08] MEDS ORDERED: LOSARTAN POTASSIUM 50 MG TAB PO SCH (09:00)
[2016-10-08] MEDS ORDERED: NURSING VERBAL MED ORDER ONE (10:15)
[2016-10-08 11:15] LABS: URINE APPEARANCE CLEAR (CLEAR); URINE BILIRUBIN NEG (NEG); URINE COLOR DK YELLOW; URINE NITRITE NEG (NEG); URINE PH 5.5 (4.5-7.5); URINE SPECIFIC GRAVITY 1.034 (1.000-1.030); UROBILINOGEN NEG (NEG)
[2016-10-08] MEDS: POTASSIUM CHLR 10 MEQ / WTR 10 MEQ in PREMIXED WATER 100 ML IV SCH ×4 (11:19→17:05)
[2016-10-08] MEDS ORDERED: POTASSIUM CHLORIDE 10 MEQ TABCR PO ONE (11:30)
[2016-10-08 11:34] LABS: MANUAL MICROSCOPIC REQUIRED? NO; REVIEW REQ? NO
[2016-10-08 11:43] VITALS: BMI 39.0
[2016-10-08 11:56] VITALS: BP 133/76; PULSE 74; TEMP 36.8; O2SAT 93
--- NOTE | 2016-10-08 14:45 | Pharmacy Progress Note ---
Glycemic Control: Progress Nt Date of Service October 08, 2016. Scope Glycemic Pharmacist consulted by Dr Coleman on 10/07/16 for glycemic control and to write orders per [facility] inpatient glycemic control protocol. Objective Accuchecks BSG (last 24hrs): Test 10/07/16 19:30 10/07/16 21:03 10/08/16 00:36 10/08/16 03:38 Bedside Glucose 122 mg/dl (70-99) 196 mg/dl (70-99) 146 mg/dl (70-99) 108 mg/dl (70-99) Test 10/08/16 06:21 Random Glucose 106 mg/dl (70-99) Laboratory Data (last 24hrs) Test 10/08/16 06:21 Anion Gap 6.0 mmol/L BUN/Creatinine Ratio 9.2 Blood Urea Nitrogen 12 mg/dl Creatinine 1.30 mg/dl Potassium Level 2.8 mmol/L Sodium Level 141 mmol/L White Blood Count 6.32 K/uL Red Blood Count 3.73 M/uL Hemoglobin 11.6 g/dL Hematocrit 34.5 % Mean Corpuscular Volume 92.5 fL Mean Corpuscular Hemoglobin 31.1 pg Mean Corpuscular Hemoglobin Concent 33.6 g/dl Platelet Count 237 K/uL Mean Platelet Volume 8.5 fL Neutrophils (%) (Auto) 53.8 % Lymphocytes (%) (Auto) 33.7 % Monocytes (%) (Auto) 9.2 % Eosinophils (%) (Auto) 2.8 % Basophils (%) (Auto) 0.5 % Neutrophils # (Auto) 3.40 K/uL Lymphocytes # (Auto) 2.13 K/uL Monocytes # (Auto) 0.58 K/uL Eosinophils # (Auto) 0.18 K/uL Basophils # (Auto) 0.03 K/uL HbA1c: Test 10/07/16 14:17 Hemoglobin A1c 10.0 % (4.5-5.6) H Recent Pertinent Medications Outpatient Anti-diabetic Regimen: * Lantus 55 units qAM plus Humalog 20 units with meals; metformin 1000 mg PO BID ; Actos 30 units qAM * A1c = 10.6 % 08/09/16 Risk Factors for Insulin Resistance: * Recent Surgery: removal of lipoma * Diet: type 2 diabetic diet Assessment & Plan ASSESSMENT: * ADA & AACE recommend a goal blood sugar range 140-180 mg/dl for the majority of critically ill & non-critically ill patients. However, more stringent targets may be selected in individual cases. Will utilize more stringent goal of 110-140mg/dl based on patient age & comorbidities. Additionally, tighter glycemic control is warranted to facilitate wound/infection healing. * Mr Gordillo is a 51 y/o male admitted 10/07/16 as observation after the excision of a neck lipoma. He is a poorly controlled diabetic with an A1C of 10.6% in July. He received Lantus 50 units SQ each morning. Yesterday he received a total of 55 units of insulin (50 units were basal). Blood sugars ranged fro 146-206 mg/dL. * This morning the patient's fasting blood sugar was 106 mg/dL. He ate breakfast and his carbohydrates were not covered. I loosened the correctional insulin to weight based and a stress of 2 as the blood sugar was only 167 mg/dL this lunchtime. PLAN FOR INPATIENT GLYCEMIC CONTROL: * Holding outpatient oral diabetes medications * Basal insulin with LANTUS 40 units SQ qAM * Correctional Insulin with NOVOLOG per scale ACHS * Goal Range: Low 110 mg/dL - High 140 mg/dL * Correction Factor: 15 mg/dL/unit * Nutritional / Prandial insulin per carb ratio of 1 unit per 6 grams CHO consumed Discharge Recommendations * Mr Gordillo is a poorly controlled diabetic. I would recommend close follow up with his primary care doctor to titrate his insulin to goal A1C. He may benefit from diabetes education especially regarding diet. * Please note that the plan above was derived based on current level of insulin resistance and hospital stress. These recommendations are appropriate for inpatient admission only. Plan of care upon discharge will need to be reassessed to avoid potential outpatient hypo/hyperglycemia. Thank you.
[2016-10-08 15:00] VITALS: Ht 185.4 cm; Wt 134.2 kg
[2016-10-08 15:13] VITALS: BP 135/84; PULSE 70; TEMP 36.5; O2SAT 95
--- NOTE | 2016-10-08 18:47 | Progress Note ---
Internal Med Progress Note Date of Service: October 08, 2016. Provider Documentation: SUBJECTIVE: resting comfortably has some pain at surgery site tolerating liquid diet no nausea or diarrhea afebrile OBJECTIVE: Vital Signs-as noted below Exam: General-alert and awake and oriented x 3. ENT-Normal hearing Neck-no neck masses s/p surgery on right neck lipoma drain seen Lungs-cta b/l no wheezing or crackles Heart-s1 and s2 heard regular rate and rhythm no murmurs Abdomen-soft bowel sounds present non tender no distension Extremities- mild pedal edema resent no erythema Neuro-alert and awake oriented moves extremities Lab data as noted below. ASSESSMENT & PLAN: S/P EXCISION LIPOMA NECK Doing fine management as per ENT HYPERTENSION BP's stable today on losartan. will monitor DM TYPE 2 Patient does not monitor blood sugars regularly at home. Preop random glucose 324. Hba21c 10. pharmacy consulted diabetic teaching hypokalemia will replace f/u labs GERD / KOENIG'S ESOPHAGUS On PPI. VTE PROPHYLAXIS SCD's ordered postoperatively. Ambulate. DISPOSITION as per ENT Vital Signs: Date Time Temp Pulse Resp B/P Pulse Ox O2 Delivery O2 Flow Rate FiO2 10/08/16 15:13 36.5 70 16 135/84 95 Room Air 10/08/16 14:00 Room Air 10/08/16 11:56 36.8 74 16 133/76 93 Room Air 10/08/16 08:00 Room Air 10/08/16 07:08 36.9 77 16 132/83 91 Room Air 10/08/16 03:40 36.7 75 18 136/87 92 Room Air 10/08/16 00:30 Room Air 10/07/16 22:55 36.7 85 20 129/83 93 Room Air 10/07/16 19:15 36.7 86 18 132/82 97 Nasal Cannula 2.0 Lab Results: Results Past 24 Hours Test 10/07/16 19:30 10/07/16 21:03 10/08/16 00:36 10/08/16 03:38 Range/Units Bedside Glucose 122 196 146 108 70-99 mg/dl Test 10/08/16 06:21 10/08/16 07:58 10/08/16 10:15 10/08/16 11:55 Range/Units White Blood Count 6.32 4.8-10.8 K/uL Red Blood Count 3.73 4.7-6.1 M/uL Hemoglobin 11.6 14.0-18.0 g/dL Hematocrit 34.5 42-52 % Mean Corpuscular Volume 92.5 80-100 fL Mean Corpuscular Hemoglobin 31.1 25-34 pg Mean Corpuscular Hemoglobin Concent 33.6 32-36 g/dl Platelet Count 237 130-400 K/uL Mean Platelet Volume 8.5 7.4-10.4 fL Neutrophils (%) (Auto) 53.8 % Lymphocytes (%) (Auto) 33.7 % Monocytes (%) (Auto) 9.2 % Eosinophils (%) (Auto) 2.8 % Basophils (%) (Auto) 0.5 % Neutrophils # (Auto) 3.40 1.4-6.5 K/uL Lymphocytes # (Auto) 2.13 1.2-3.4 K/uL Monocytes # (Auto) 0.58 0.11-0.59 K/uL Eosinophils # (Auto) 0.18 0-0.5 K/uL Basophils # (Auto) 0.03 0-0.2 K/uL RDW Standard Deviation 46.8 36.4-46.3 fL RDW Coefficient of Variation 13.8 11.5-14.5 % Immature Granulocyte % (Auto) 0.0 % Immature Granulocyte # (Auto) 0.00 0.00-0.02 K/uL Sodium Level 141 136-145 mmol/L Potassium Level 2.8 3.5-5.1 mmol/L Chloride Level 105 98-107 mmol/L Carbon Dioxide Level 30 21-32 mmol/L Anion Gap 6.0 3-11 mmol/L Blood Urea Nitrogen 12 7-18 mg/dl Creatinine 1.30 0.60-1.40 mg/dl Est Creatinine Clear Calc Drug Dose 96.6 ml/min Estimated GFR () 73.2 Estimated GFR (Non- 63.2 BUN/Creatinine Ratio 9.2 10-20 Random Glucose 106 70-99 mg/dl Calcium Level 8.4 8.5-10.1 mg/dl Bedside Glucose 110 167 70-99 mg/dl Urine Color DK YELLOW Urine Appearance CLEAR CLEAR Urine pH 5.5 4.5-7.5 Urine Specific [place] 1.034 1.000-1.030 Urine Protein TRACE NEG Urine Glucose (UA) TRACE NEG Urine Ketones TRACE NEG Urine Occult Blood NEG NEG Urine Nitrite NEG NEG Urine Bilirubin NEG NEG Urine Urobilinogen NEG NEG Urine Leukocyte Esterase NEG NEG Urine WBC (Auto) 1-5 0-5 /hpf Urine RBC (Auto) 0-4 0-4 /hpf Urine Hyaline Casts (Auto) 1-5 0-5 /lpf Urine Epithelial Cells (Auto) 10-20 0-5 /lpf Urine Bacteria (Auto) NEG NEG Test 10/08/16 16:52 Range/Units Bedside Glucose 164 70-99 mg/dl
[2016-10-08 23:00] VITALS: BP 132/86; PULSE 67; TEMP 36.6; O2SAT 99
[2016-10-09 06:23] LABS: BASO % 0.2 %; BASO ABS # 0.01 K/uL (0-0.2); COMPLETE YES; EOS % 2.6 %; HEMATOCRIT 35.1 % (42-52); IG% 0.2 %; LYMPH % 25.1 %; LYMPH ABS # 1.53 K/uL (1.2-3.4); MEAN CELL VOLUME 93.1 fL (80-100); MEAN CORPUSCULAR HEMOGLOBIN 30.8 pg (25-34); MEAN PLATELET VOLUME 8.6 fL (7.4-10.4); MONO % 6.9 %; PLATELET COUNT 230 K/uL (130-400); RED BLOOD COUNT 3.77 M/uL (4.7-6.1); WHITE BLOOD COUNT 6.09 K/uL (4.8-10.8)
[2016-10-09 06:53] LABS: CALCIUM 8.6 mg/dl (8.5-10.1); CREATININE 1.1 mg/dl (0.60-1.40); MAGNESIUM 1.9 mg/dl (1.8-2.4); POTASSIUM 3.8 mmol/L (3.5-5.1)
[2016-10-09 07:20] VITALS: BP 119/76; PULSE 67; TEMP 36.4; O2SAT 96
--- NOTE | 2016-10-09 07:29 | Ears,Nose,Throat Progress Note ---
Progress Note Date of Service October 09, 2016. Subjective Pt evaluation today including: conversation w/ patient, physical exam, chart review, lab review Patient POD 2 s/p lipoma excision. Drain output decreased today. Appreciate medicine input. Objective Vital Signs Date Time Temp Pulse Resp B/P Pulse Ox O2 Delivery O2 Flow Rate FiO2 10/09/16 07:20 36.4 67 20 119/76 96 Room Air 10/09/16 00:05 Room Air 10/08/16 23:00 36.6 67 18 132/86 99 Room Air 10/08/16 15:13 36.5 70 16 135/84 95 Room Air 10/08/16 14:00 Room Air 10/08/16 11:56 36.8 74 16 133/76 93 Room Air 10/08/16 08:00 Room Air Physical Exam General Appearance: WD/WN, no apparent distress Neck: + pertinent finding (flaps flat. Drain inplace, removed this am. ) Cardiovascular: no JVD Laboratory Results Last 24 Hours Test 10/08/16 07:58 10/08/16 10:15 10/08/16 11:55 10/08/16 16:52 Bedside Glucose 110 mg/dl 167 mg/dl 164 mg/dl Urine Color DK YELLOW Urine Appearance CLEAR Urine pH 5.5 Urine Specific [place] 1.034 Urine Protein TRACE Urine Glucose (UA) TRACE Urine Ketones TRACE Urine Occult Blood NEG Urine Nitrite NEG Urine Bilirubin NEG Urine Urobilinogen NEG Urine Leukocyte Esterase NEG Urine WBC (Auto) 1-5 /hpf Urine RBC (Auto) 0-4 /hpf Urine Hyaline Casts (Auto) 1-5 /lpf Urine Epithelial Cells (Auto) 10-20 /lpf Urine Bacteria (Auto) NEG Test 10/08/16 20:45 10/09/16 06:10 Bedside Glucose 214 mg/dl White Blood Count 6.09 K/uL Red Blood Count 3.77 M/uL Hemoglobin 11.6 g/dL Hematocrit 35.1 % Mean Corpuscular Volume 93.1 fL Mean Corpuscular Hemoglobin 30.8 pg Mean Corpuscular Hemoglobin Concent 33.0 g/dl Platelet Count 230 K/uL Mean Platelet Volume 8.6 fL Neutrophils (%) (Auto) 65.0 % Lymphocytes (%) (Auto) 25.1 % Monocytes (%) (Auto) 6.9 % Eosinophils (%) (Auto) 2.6 % Basophils (%) (Auto) 0.2 % Neutrophils # (Auto) 3.96 K/uL Lymphocytes # (Auto) 1.53 K/uL Monocytes # (Auto) 0.42 K/uL Eosinophils # (Auto) 0.16 K/uL Basophils # (Auto) 0.01 K/uL RDW Standard Deviation 46.1 fL RDW Coefficient of Variation 13.7 % Immature Granulocyte % (Auto) 0.2 % Immature Granulocyte # (Auto) 0.01 K/uL Sodium Level 145 mmol/L Potassium Level 3.8 mmol/L Chloride Level 109 mmol/L Carbon Dioxide Level 31 mmol/L Anion Gap 5.0 mmol/L Blood Urea Nitrogen 10 mg/dl Creatinine 1.10 mg/dl Est Creatinine Clear Calc Drug Dose 114.2 ml/min Estimated GFR () 89.6 Estimated GFR (Non- 77.3 BUN/Creatinine Ratio 9.0 Random Glucose 88 mg/dl Calcium Level 8.6 mg/dl Magnesium Level 1.9 mg/dl Assessment and Plan 51 yo male s/p excision of right cervical lipoma, POD 2. - drain removed - discharge home this am - appreciate medicine input - follow up in my office next week for post op
--- NOTE | 2016-10-09 07:57 | Discharge Summary ---
Discharge Summary Date of Service October 09, 2016. Discharge Summary Admission Date: October 07, 2016 at 07:45 Discharge Date: October 09, 2016 Discharge Disposition: Home Primary Diagnosis: cervical lipoma Procedures: excision of right cervical lipoma Consultations: Internal Medicine Discharge Instructions Last Recorded Wt (Kilograms): 134.200 Activity Recommendations: limitations (No strenuous activity for 2 weeks. Keep incision dry. ) Return to School/Work: limitations (2 weeks off work) Diet At Discharge: Regular Allergies: Coded Allergies: Trazodone (Unverified Allergy, Unknown, UNKNOWN, 10/07/16) Discharge Medications: Medications Dose Route/Sig Max Daily Dose Days Date Category Keflex (Cephalexin Monohydrate) 500 Mg Cap 500 Mg PO TID 7 10/07/16 Rx Percocet 5MG/325MG (Oxycodone/Acetaminophen) Tab 1-2 Tablets PO Q4-6H PRN 10/07/16 Rx Aspirin Ec (Aspirin) 81 Mg Tab 81 Mg PO QAM 10/02/16 Reported Xanax (Alprazolam) 0.5 Mg Tab 0.5 Mg PO BID PRN 10/02/16 Reported Benzoyl Peroxide 10 % Gel 1 Dose TOP PRN 10/02/16 Reported Citalopram Hydrobromide 20 Mg Tab 1 Tab PO QAM 90 10/02/16 Reported Wellbutrin (Bupropion HCl) 100 Mg Tab 100 Mg PO TID 10/02/16 Reported Lasix (Furosemide) 80 Mg Tab 80 Mg PO QPM 10/02/16 Reported Glucophage (Metformin Hcl) 1,000 Mg Tab 1,000 Mg PO BID 10/02/16 Reported Cozaar (Losartan Potassium) 100 Mg Tab 100 Mg PO QAM 10/02/16 Reported Humalog (Insulin Human Lispro) 1 Ea Inj 20 Units INJ TIDM 10/02/16 Reported Lantus (Insulin Glargine) 100 Unit/Ml Inj 55 Units INJ QAM 10/02/16 Reported Klor-Con (Potassium Chloride) 20 Meq Tabcr 20 Meq PO QAM 10/02/16 Reported Neurontin (Gabapentin) 800 Mg Tab 800 Mg PO TID 10/02/16 Reported Prilosec (Omeprazole) 20 Mg Capcr 20 Mg PO QAM 10/02/16 Reported Lipitor (Atorvastatin Calcium) 80 Mg Tab 80 Mg PO QAM 10/02/16 Reported Actos (Pioglitazone) 30 Mg Tab 1 Tab PO QAM 90 10/02/16 Reported Home Health Services: none Special Care: Call your doctor if: * Temperature above 101 degrees * Pain not relieved by pain medicine ordered * There is increased drainage or redness from any incision * You have any unanswered questions or concerns. Avoid all tobacco products. If you need help to stop smoking, call [place]'s FREE QUITLINE at . This is a free call. Admission Information Admission HPI: Patient with right sided neck mass, clinically and radiographically consistent with lipoma. Admission Physical Exam: Gen: AAOx3. NAD Neck: Right neck with mobile neck mass, soft and non tender Lungs: CTAB Heart: RRR Hospital Course Patient was admitted post op for observation after right cervical lipoma. A TRISH drain was placed at time of surgery and was trended. On POD 2 the drain output was low enough to remove the drain. The patient was doing well, tolerating diet , ambulating, afebrile and no issues, thus was discharged home on POD2. He is to follow up in my office next week for incision check and to discuss pathology. Total time spent on discharge = This includes examination of the patient, discharge planning, medication reconciliation, and communication with other providers.
[2016-10-09] MEDS: CITALOPRAM 20 MG TAB PO SCH (08:42)
[2016-10-09 08:46] VITALS: BP 136/88; PULSE 82
[2016-10-09] MEDS: LOSARTAN POTASSIUM 50 MG TAB PO SCH (08:46)
[2016-10-09] MEDS: POTASSIUM CHLORIDE 20 MEQ TABCR PO SCH (08:47)
[2016-10-09] MEDS: ATORVASTATIN 40 MG TAB PO SCH (08:47)
[2016-10-09] MEDS: GABAPENTIN 800 MG TAB PO SCH (08:47)
[2016-10-09] MEDS: PANTOprazole SOD 40 MG TAB PO SCH (08:48)
[2016-10-09] MEDS: INSULIN ASPART 100 UNITS/ML 3 ML PEN SC SCH (08:52)
[2016-10-09] MEDS: INSULIN GLARGINE SOLOSTAR 100 UNITS/ML 3 ML PEN SC SCH (08:54)
[2016-10-09 10:42] VITALS: BP 136/88; PULSE 82; TEMP 36.4; O2SAT 96
== END 2016-10-09 11:32 | disposition home or self-care (01) ==
LOC: ENRESERVTM → ENRESERVDT → C.ACU 07:23 → C.MSW 07:45
PROVIDERS: ADMIT Otolaryngology; ATTEND Otolaryngology
DX: D17.0 Benign lipomatous neoplasm of skin and subcutaneous tissue of head, face and neck (principal); I10 Essential (primary) hypertension; E11.9 Type 2 diabetes mellitus without complications; F32.9 Major depressive disorder, single episode, unspecified; G47.33 Obstructive sleep apnea (adult) (pediatric); Z68.39 Body mass index [BMI] 39.0-39.9, adult; E66.9 Obesity, unspecified; Z79.82 Long term (current) use of aspirin; Z79.4 Long term (current) use of insulin; Z79.899 Other long term (current) drug therapy; Z98.890 Other specified postprocedural states; Z90.49 Acquired absence of other specified parts of digestive tract; Z83.3 Family history of diabetes mellitus; Z82.49 Family history of ischemic heart disease and other diseases of the circulatory system; Z80.0 Family history of malignant neoplasm of digestive organs